=== PATIENT | female | born 1980 | race Hispanic/Latino ===

== ENCOUNTER 2018-07-01 16:02 | Emergency (ER) | payer OTHER ==
[~2018-07-01] VITALS: Ht 167.6 cm; Wt 99.8 kg
[2018-07-01] MEDS ORDERED: SODIUM CHLORIDE 0.9% 1000ML 1,000 ML IV SCH (16:15)
[2018-07-01] MEDS ORDERED: METOCLOPRAMIDE HCL 10 MG/2ML VIAL IV ONE (17:00)
[2018-07-01] MEDS ORDERED: KETOROLAC TROMETHAMINE 30 MG/ML VIAL IV ONE (17:00)
--- NOTE | 2018-07-01 17:16 | NUR ---
PT RESTING, PT STATED PAIN IS MUCH BETTER PAIN NOW 2/10. VITAL SIGNS STABLE. PT VOICES NO COMPLAINTS AT THIS TIME.
--- NOTE | 2018-07-01 17:23 | Diagnostic Imaging Report ---
Examination: CT head without contrast Clinical Indication: Dizziness. Headache.. Technique: Transaxial noncontrast images from the skull base through the vertex were obtained. Sagittal and coronal reformatted images were done. Dose modulation, iterative reconstruction, and/or weight based adjustment of the mA/kV was utilized to reduce the radiation dose to as low as reasonably achievable. Comparison: None. Findings: Scalp: No abnormalities. Bones: Intact. No fractures. No blastic or lytic lesions. Brain sulci: Appropriate for patient's age. Ventricles: Normal in size and configuration. No hydrocephalus. Extra-axial space: No abnormalities. Parenchyma: No abnormal densities. No masses, hemorrhage, or acute or chronic cortical based vascular insults. Suprasellar region: Expanded and CSF filled sella. Craniocervical junction: The foramen magnum is patent. No Chiari one malformation. Impression: No acute intracranial abnormality. Signed by: Dr. Verónica Henao M.D. on 07/01/2018 5:20 PM
[2018-07-01 17:27] VITALS: BP 120/72
== END 2018-07-01 17:34 | disposition home or self-care (01) ==
LOC: FSED 16:02
DX: G44.89 Other headache syndrome (principal); G43.909 Migraine, unspecified, not intractable, without status migrainosus
CPT/HCPCS: 70450; 99283; J1885; J2765; J7030